=== PATIENT | male | born 1990 | race Caucasian/White ===

== ENCOUNTER 2018-04-26 14:53 | Emergency (ER) | payer SELFPAY ==
[~2018-04-26] VITALS: Ht 185.4 cm; Wt 113.4 kg
[2018-04-26 15:55] VITALS: BP 135/88
== END 2018-04-26 16:50 | disposition home or self-care (01) ==
LOC: ER 15:11
DX: S46.911A Strain of unspecified muscle, fascia and tendon at shoulder and upper arm level, right arm, initial encounter (principal); X50.0XXA Overexertion from strenuous movement or load, initial encounter; Y93.89 Activity, other specified; Y99.8 Other external cause status; Y92.89 Other specified places as the place of occurrence of the external cause
CPT/HCPCS: 73000; 93005